=== PATIENT | female | born 1995 | race Caucasian/White ===

== ENCOUNTER 2016-10-04 11:03 | Emergency (ER) | payer OTHER ==
[~2016-10-04] VITALS: Ht 157.5 cm; Wt 56.0 kg
[2016-10-04 11:04] VITALS: BP 126/83; PULSE 104; RESP 16; TEMP 98.2; O2SAT 98
--- NOTE | 2016-10-04 11:39 | PD ---
Physical Exam Date Seen by Provider: Oct 04, 2016 Time Seen by Provider: 11:36 Narrative 20 year old female presents to the emergency department for evaluation of a right ovarian cyst. She was at [facility] last week for same issue. Patient states pain is worse and is now on the left side as well. Patient states she is 6 weeks . Patient awaiting bed placement. Data Data Last Documented VS Vital Signs Date Time Temp Pulse Resp B/P Pulse Ox O2 Delivery O2 Flow Rate FiO2 10/04/16 11:04 98.2 104 16 126/83 98 MDM Supervised Visit with MARIBELL: Tamra Morgan Oct 04, 2016 11:39
[2016-10-04 12:59] LABS: BACTERIA, URINE OCC /hpf; BLOOD, URINE NEG (NEG); COMMENT (UR) CULT NOT INDICATED; CULTURE IF INDICATED CULT NOT INDICATED; GLUCOSE,URINE NEG (NEG); KETONE, URINE NEG (NEG); MUCUS URINE FEW /lpf (OCC); NITRITE,URINE NEG (NEG); SQUAMOUS EPITHELIAL CELL URINE 7 /hpf (0-5); URINE COLOR YELLOW (YELLW/STRAW)
[2016-10-04 13:18] LABS: BETA HCG QUANT 33029 MIU/ML (0-5)
--- NOTE | 2016-10-04 13:19 | PD ---
HPI Chief Complaint: Abdominal Pain Time Seen by Provider: 11:43 Travel History International Travel<30 days: No Contact w/Intl Traveler<30days: No Traveled to known affect area: No History of Present Illness HPI 20-year-old female here with complaint of abdominal pain. Patient states that she is approximately 6 weeks 6 days based on LMP. She has been having now 1 week of low abdominal pain greatest on the left side. She was seen at [facility] ER approximate 1 week ago where she had an ultrasound performed and was told that she had an ovarian cyst. Patient is unable to tell me whether she had an intrauterine identified. Her pain has increased over the last 2 days prompting ER visit. States that the ultrasound showed the cyst was on her right side in her pain is on the contralateral side. Denies any urinary symptoms, vaginal bleeding. This is her first . PFSH Past Medical History Reproductive: Yes (ovarian cyst ) ?: LMP: 08/18/16 : 0 Para: 0 Miscarriage: 0 : 0 Ovarian Cysts: Yes (R) Past Surgical History Surgical History: No Previous Surgery Social History Alcohol Use: No Tobacco Use: No Substance Use: No Allergies-Medications (Allergen,Severity, Reaction): Coded Allergies: Septra (Verified Allergy, Severe, Anaphylaxis, 10/04/16) Reported Meds & Prescriptions Reported Meds & Active Scripts Active No Active Prescriptions or Reported Medications Review of Systems Except as stated in HPI: all other systems reviewed are Neg Physical Exam Narrative GENERAL: Well-appearing female in mild distress SKIN: Focused skin assessment warm/dry. HEAD: Normocephalic. EYES: No scleral icterus. No injection or drainage. ENT: Mucous membranes pink and moist. NECK: Supple CARDIOVASCULAR: Regular rate and rhythm. RESPIRATORY: No accessory muscle use. GASTROINTESTINAL: Abdomen soft, suprapubic and left lower quadrant tenderness to palpation without rebound or guarding MUSCULOSKELETAL: Normal gait NEUROLOGICAL: Awake and alert. Normal speech. PSYCHIATRIC: Appropriate mood and affect; insight and judgment normal. Data Data Last Documented VS Vital Signs Date Time Temp Pulse Resp B/P Pulse Ox O2 Delivery O2 Flow Rate FiO2 10/04/16 11:04 98.2 104 16 126/83 98 Orders Ed Poc Ultrasound (10/04/16 ) Ed Urine Pregnancytest Poc (10/04/16 11:51) Beta Hcg (Quant/Titer) (10/04/16 12:06) Urinalysis - C+S If Indicated (10/04/16 12:06) Complete Rh (10/04/16 12:06) Us Pelvis (Ques Pr/Ect)W Trans (10/04/16 ) Labs Laboratory Tests Test 10/04/16 10/04/16 11:55 12:24 Urine Color YELLOW Urine Turbidity CLOUDY Urine pH 7.0 Urine Specific [place] 1.022 Urine Protein TRACE mg/dL Urine Glucose (UA) NEG mg/dL Urine Ketones NEG mg/dL Urine Occult Blood NEG Urine Nitrite NEG Urine Bilirubin NEG Urine Urobilinogen 2.0 MG/DL Urine Leukocyte Esterase SMALL Urine WBC 3 /hpf Urine Squamous Epithelial 7 /hpf Cells Urine Amorphous Sediment MOD Urine Bacteria OCC /hpf Urine Mucus FEW /lpf Microscopic Urinalysis Comment CULT NOT INDICATED Human Chorionic Gonadotropin, [address] MIU/ML Quant Blood Type AB POSITIVE Rho(D) Type POSITIVE MDM Medical Decision Making Medical Screen Exam Complete: Yes Emergency Medical Condition: Yes Medical Record Reviewed: Yes Differential Diagnosis 20-year-old female here with complaint of and left lower quadrant abdominal pain. Differential includes , ectopic , threatened AB, missed AB, inevitable be, ovarian cysts, less likely ovarian torsion, UTI. Narrative Course Urine test was positive. Bedside ultrasound shows possible IUP but unable to measure dates. Small amount of free fluid within the pelvis. Rh was positive. Urine does show occasional bacteria, will treat with Macrobid for home. Beta Quant was 33,029. Transvaginal ultrasound showed intrauterine measuring 6 weeks 2 days. 120 beats per minute. There is a right ovarian cyst measuring 6 x 7.3 x 5.5 cm and a small amount of free fluid within the cul-de-sac. Left ovary is unremarkable. Patient was reassured and will be discharged home with outpatient [facility] follow-up. Procedures Procedure Narrative Emergency Department Pelvic ultrasound was performed with patient consent. The curvilinear probe was used in the transverse and sagittal views within the suprapubic region revealing possible intrauterine . Small amount of free fluid in the pelvis. Unable to manage her or detect heart tones. Diagnosis Primary Impression: Pelvic pain affecting Additional Impressions: Right ovarian cyst Asymptomatic bacteriuria Referrals: [facility] call for appointment [facility] call for appointment Additional Instructions: Antibiotics as prescribed for bacteria in the urine. Tylenol as needed for pain. Follow-up with [facility] to establish care for this and to follow- up for right ovarian cyst. Med/Other Pt SpecificInfo: Prescription(s) given Scripts Nitrofurantoin Monohydrate Macrocrystals (Macrobid)100 Mg Pyw995 Mg PO BID 7 Days Ref 0 Prov:Frances Steen MD 10/04/16 Disposition: 01 DISCHARGE HOME Condition: Stable Frances Steen MD Oct 04, 2016 13:19
--- NOTE | 2016-10-04 13:54 | RADRPT ---
EXAM DATE/TIME: 10/04/2016 13:13 [place] COMPARISON: No previous studies available for comparison. INDICATIONS : Pelvic pain. LAB(S): Beta-[facility] MEDICAL HISTORY : . SURGICAL HISTORY : None. ENCOUNTER: Initial ACUITY: 3 weeks PAIN SCORE: 2/10 LOCATION: Bilateral pelvis MEASUREMENTS: UTERUS: 9.2 x 6.3 x 4.5 cm ENDOMETRIAL STRIPE: 14 mm RIGHT OVARY: 6.5 x 7.9 x 7.4 cm LEFT OVARY: 2.9 x 1.3 x 1.1 cm FREE FLUID: Yes CROWN RUMP LENGTH: 0.56 cm = 6 WKS 2 DAYS FHR: 121 BPM FINDINGS: UTERUS: The examination demonstrates an intrauterine gestation with a crown-rump length of 0.56 CM. This [place] esponds to a gestational age of 6 weeks 2 days. There is a heartbeat present at 120 beats per m inute. RIGHT OVARY: The examination demonstrates a 6.0 x 7.3 x 5.5 cm anechoic cyst within the right ovary. LEFT OVARY: Ovary contains no mass or significant cystic lesion. MISCELLANEOUS: No free fluid. CONCLUSION: 1. Viable intrauterine . 2. 6.0 x 7.3 x 5.5 cm anechoic cyst within the right ovary. 3. There is a small amount of free fluid within the uterine cul-de-sac. Rajan Carmona MD on October 04, 2016 at 13:51 Board Certified Radiologist. This report was verified electronically.
[2016-10-04] MEDS ORDERED: MACR100C2 PO (13:59)
== END 2016-10-04 14:19 | disposition home or self-care (01) ==
LOC: NEPD 11:03
DX: O26.891 Other specified pregnancy related conditions, first trimester (principal); R10.2 Pelvic and perineal pain; N83.201 Unspecified ovarian cyst, right side; R10.32 Left lower quadrant pain; R82.71 Bacteriuria
CPT/HCPCS: 76700; 76817; 81001; 84702; 84703; 86901